=== PATIENT | female | born 1950 | race Caucasian/White ===

== ENCOUNTER → 2016-06-10 | Day surgery (SDC) | payer BC ==
[~2016-06-10] MED LIST: ATOR20TA15 PO; BUPIVACAINE/EPINEPHRINE 0.25% 50 ML VIAL ONE; BUPIVACAINE/EPINEPHRINE 0.25% PF 10 ML VIAL ONE; CALC1TAB87 PO; DENO60P SQ; LACTATED RINGER'S 1000 ML INJ 1,000 ML ONE; MIDAZOLAM HCL 2 MG/2 ML VIAL ONE; NEOMYCIN/POLYMYXIN/BACITRACIN OINT 15 GM TUBE ONE; ONDANSETRON HCL 4 MG/2 ML VIAL IV PUSH ONE; PROPOFOL 200 MG/20 ML AMP IV ONE; ceFAZolin 2 GM PREMIX 50 ML ONE
--- NOTE | 2016-06-12 10:45 | TN ---
cc: DENY MCLAIN D.O.,DAMION Willis M.D. DATE OF SURGERY 06/10/2016 DATE OF 1950 DATE OF PROCEDURE 06/10/2016 PREOPERATIVE DIAGNOSIS Patient with exophytic vulvar lesion midline peritoneum. PROCEDURE Excision of vulvar lesion perineoplasty POSTOPERATIVE DIAGNOSIS Patient with exophytic vulvar lesion midline peritoneum. SURGEON Damion Sweeney MD ANESTHESIA General with LMA and local infiltration of 0.25% Marcaine with epinephrine. ESTIMATED BLOOD LOSS None DRAINS None OPERATIVE FINDINGS The patient had an elliptical shaped lesion in the midline over the peritoneum approximately 1 cm margins were obtained around the lesion. The lesion was sent in formalin. PROCEDURE DESCRIPTION The patient was taken up to the operating room. Under general anesthesia, she had an LMA placed. She was carefully positioned in the dorsolithotomy position using candy-cane stirrups with sequential's placed on lower extremities for VTE prophylaxis. Appropriate padding was placed where necessary. Time-out was then conducted, agreed by all present in the room. Initiation of the exam revealed the lesion previously identified. Quarter percent Marcaine with epinephrine was injected, 10 cc was injected subcutaneously around the lesion. A #15 blade was used to take a large elliptical margin around the lesion full-thickness skin was taken down to the subcutaneous layer. Small bleeders were cauterized as necessary. The deeper defect was closed with a running suture of 2-0 Vicryl in two layers and then the skin was reapproximated with a running locking suture of 4-0 Monocryl. Ointment was applied. There is no bleeding or hematoma. Tissue specimen was sent in formalin. At the completion of the case, final count was correct. The patient was stable and she was taken to the recovery room on room air. MD TAYE Pereira/ALAINA /8:52 AM /10:34 AM
== END | disposition home or self-care (01) ==
LOC: ESDC 07:12
PROVIDERS: ATTEND Obstetrics & Gynecology
DX: D07.1 Carcinoma in situ of vulva (principal)
CPT/HCPCS: 00906; 56620; 88305; J0690; J2250; J2405; J3010; J7120